=== PATIENT | female | born 1930 | race Caucasian/White ===

== ENCOUNTER 2017-02-26 13:05 | Emergency (ER) | payer OTHER ==
[~2017-02-26] VITALS: Ht 152.4 cm; Wt 66.9 kg
[~2017-02-26 13:05] MED LIST: EZET10TA41 PO; LSX20 PO; METO25TA3 PO; POTA10CA28 PO; VANCOMYCIN PO
[2017-02-26 13:09] VITALS: TEMP 36.7; Ht 152.4 cm; Wt 66.9 kg
[2017-02-26] MEDS ORDERED: LIDOCAINE/EPINEPHRINE 1% 20 ML VIAL INFIL STA (13:19)
--- NOTE | 2017-02-26 13:43 | DIAGNOSTIC IMAGING REPORT ---
CERVICAL SPINE W/O CT DOSE: 381.59 mGycm HISTORY: Trauma Fall, head trauma TECHNIQUE: Multiaxial CT images of the cervical spine were performed and reformatted in the sagittal and coronal plane without the use of contrast. A dose lowering technique was utilized adhering to the principles of ALARA. COMPARISON: None. FINDINGS: No fractures. No subluxation. Prevertebral soft tissues and the C1-C2 interval are intact. No pneumothorax. Degenerative disc changes throughout. Degenerative change of vertebral endplates and posterior elements. IMPRESSION: Degenerative change. No acute process. The above report was generated using voice recognition software. It may contain grammatical, syntax or spelling errors. Electronically signed by: Rachid Garner M.D. 02/26/2017 1:42 PM Dictated Date/Time: 02/26/2017 1:40 PM
--- NOTE | 2017-02-26 13:50 | DIAGNOSTIC IMAGING REPORT ---
HEAD CT NONCONTRAST CT DOSE: 638.56 mGycm HISTORY: Fall, head trauma TECHNIQUE: Multiaxial CT images of the head were performed without the use of intravenous contrast. Automated exposure control was utilized for this study. A dose lowering technique was utilized adhering to the principles of ALARA. Comparison: None. Findings: Trace fluid within the left sphenoid sinus. The remaining paranasal sinuses and mastoid air cells are clear. The calvarium and skull base are intact. There is no mass, hematoma, midline shift, acute infarct. White matter hypodensity is nonspecific but suggestive of microvascular ischemic change. The ventricles and sulci demonstrate mild age-related involutional changes. Right supraorbital soft tissue laceration. Impression: No acute intracranial abnormality. Right supraorbital soft tissue laceration. Electronically signed by: Loco Spivey M.D. 02/26/2017 1:49 PM Dictated Date/Time: 02/26/2017 1:40 PM
--- NOTE | 2017-02-26 14:33 | EMERGENCY ROOM VISIT NOTE ---
ED Visit Note First contact with patient: 13:13 Chief Complaint: "Fall" History of Present Illness: This patient is a 87-year-old female who presents to the Emergency Department via private vehicle for evaluation of their right forehead laceration. Patient sustained the laceration while attempting to refill a bird feeder, when she stepped in a hole and fell to her left striking the right side of her head off of the ground. They report a moderate amount of bleeding initially. They report no loss of consciousness. They deny any headache , visual disturbance, nausea, vomiting, or neck pain. She was seen at a local urgent care who referred her here for further evaluation and management of the facial laceration. Patient rates her current discomfort as a 2/10. Patient's Tetanus status is believed to be currently up-to-date with the last being 4 years ago. Medications: As noted below Allergies: None PMH: No pertinent SHx: Patient lives locally ROS: All pertinent positive and negative review of systems are appropriately documented in the History of Present Illness. Physical Exam: VITAL SIGNS - Vital signs and nursing notes were reviewed. Stable. Hypertensive. GENERAL -87-year-old female appearing her stated age. Communicates well with provider and answers questions appropriately. SKIN - There is a 2.5 cm laceration noted just above the right eyebrow and parallel to that 2 cm above is a 0.75 cm linear laceration in the same plane as the first. The edges gape apart with traction. There is no active bleeding appreciated. No deep structures including vessels, musculature, or bony structures are appreciated. HEAD - Normocephalic. No Mason's Sign or Raccoon's Eyes. No depressed skull fractures palpable. EYES - PERRL with EOMI bilaterally. Without subconjunctival hemorrhage. EARS - No deformities of external structures noted on gross examination bilaterally. No hemotympanum present. No tympanic perforation noted. NOSE - Midline and without cyanosis. No epistaxis or clear watery discharge noted. Septum midline without deviation. MOUTH/OROPHARYNX - Without perioral cyanosis. Tongue midline with equal elevation of palate bilaterally. NECK - FROM assessed. No tenderness to palpation over the cervical spinous processes. No cervical paraspinal muscle tenderness noted. LUNGS - Chest wall symmetric without accessory muscle use, intercostals retractions, or central cyanosis. Normal vesicular breath sounds CTA B/L. No wheezes, rales, or rhonchi appreciated. CARDIAC - RRR with S1/S2. No murmur, rubs, or gallops appreciated. EXTREMITIES - No gross deformities noted of the extremities. +5/5 strength noted in UE/LE bilaterally. NEUROLOGIC - Cranial nerves II through XII grossly intact. Sensory intact to light touch throughout. PSYCH - A&O, and cooperates fully with examiner. Pt is very pleasant and interacts well with examiner. IMAGING: HEAD CT NONCONTRAST CT DOSE: 638.56 mGycm HISTORY: Fall, head trauma TECHNIQUE: Multiaxial CT images of the head were performed without the use of intravenous contrast. Automated exposure control was utilized for this study. A dose lowering technique was utilized adhering to the principles of ALARA. Comparison: None. Findings: Trace fluid within the left sphenoid sinus. The remaining paranasal sinuses and mastoid air cells are clear. The calvarium and skull base are intact. There is no mass, hematoma, midline shift, acute infarct. White matter hypodensity is nonspecific but suggestive of microvascular ischemic change. The ventricles and sulci demonstrate mild age-related involutional changes. Right supraorbital soft tissue laceration. Impression: No acute intracranial abnormality. Right supraorbital soft tissue laceration. Electronically signed by: Loco Spivey M.D. 02/26/2017 1:49 PM Dictated Date/Time: 02/26/2017 1:40 PM CERVICAL SPINE W/O CT DOSE: 381.59 mGycm HISTORY: Trauma Fall, head trauma TECHNIQUE: Multiaxial CT images of the cervical spine were performed and reformatted in the sagittal and coronal plane without the use of contrast. A dose lowering technique was utilized adhering to the principles of ALARA. COMPARISON: None. FINDINGS: No fractures. No subluxation. Prevertebral soft tissues and the C1-C2 interval are intact. No pneumothorax. Degenerative disc changes throughout. Degenerative change of vertebral endplates and posterior elements. IMPRESSION: Degenerative change. No acute process. The above report was generated using voice recognition software. It may contain grammatical, syntax or spelling errors. Electronically signed by: Rachid Garner M.D. 02/26/2017 1:42 PM Dictated Date/Time: 02/26/2017 1:40 PM ED Course: Patient was seen and evaluated by myself. Patient had no focal neurological deficits. Patient's exam is otherwise unremarkable. Patient reports no headaches , visual disturbances, nausea, vomiting, or over-lethargy. Risks and benefits of performing primary wound closure versus no repair were discussed with the patient who verbalizes understanding. CT scan was obtained of the head and cervical spine to rule out acute process. These were negative. Results as above. Verbal consent was obtained prior to performing the procedure. 6 cc of 1% buffered lidocaine with epinephrine was used to anesthetize the 2 facial lacerations. The wound was cleansed and prepped in the typical sterile fashion utilizing normal saline and Betadine. The wound was sterilely draped. Once proper anesthetization was established, the wound was further examined and demonstrated a few pieces of debris which were thoroughly irrigated. The wound was copiously irrigated with normal saline and Betadine. The wound was closed using one simple Vicryl 6 -0 suture with the superficial layers being closed with 7, simple 6-0 nylon sutures and the superior small laceration closed with one simple, 6-0 nylon suture with the wound edges being well approximated. Patient tolerated the procedure well. No complications were met. The wound was cleansed and dressed with a Bacitracin dressing. Patient educated on worrisome symptoms for return visit to the Emergency Department. Patient discharged to home in good condition. Medication list reviewed and she was found hypertensive I believe secondary to situation which improved greatly upon her stay here in the emergency department. In the evaluation and treatment of this patient, the following differential diagnoses were considered: Concussion, Contrecoup Injury, Brain Tumor, Depression, Encephalitis, Hypothyroidism, Meningitis, CVA, TIA, Migraine, Cluster Headache, Intracranial Abnormality, Intracranial Hemorrhage, Subdural Hematoma, Subarachnoid Hemorrhage, Hydrocephalus. Current/Historical Medications Scheduled Ezetimibe/Simvastatin (Vytorin 10MG/40MG), 1 TAB PO QPM Furosemide (Lasix *), 20 MG PO QAM Metoprolol Succ (Toprol Xl) (Toprol-Xl), 12.5 MG PO DAILY Potassium Chloride (Micro-K Ext Rel), 10 MEQ PO BID [Vancomycin], 125 MG PO QID Allergies Coded Allergies: No Known Allergies (Verified Allergy, Mild, 06/27/03) Vital Signs Date Time Temp Pulse Resp B/P (MAP) Pulse Ox O2 Delivery O2 Flow Rate FiO2 11/10/17 14:56 78 20 142/78 99 02/26/17 13:09 36.7 63 17 202/82 95 Room Air Departure Information Impression Primary Impression: Fall Additional Impression: Scalp laceration Dispostion Home / Self-Care Condition GOOD Referrals Jose Carlos Fuller D.OAnthony (PCP) Patient Instructions My [facility] Additional Instructions Discharge Instructions: You have received 8 sutures on your face. These sutures are NOT dissolvable and WILL need to be removed by a health care provider in 7 days. You can return to the Emergency Department or contact your Primary Care Provider to have the sutures removed. Proper wound care is essential for adequate wound healing and infection prevention. You can shower and clean the wound with soap and water. Do not scour over the wound, pat dry with a towel. Do not submerse the wound (i.e. bathe or dish wash) until the sutures have been removed. You can use an antibiotic ointment with a dressing over the wound for the next 2-3 days. After this time you may leave the wound dry and open to the air. If crust develops over the wound you can use a Q-tip to apply a 1:1 peroxide:water solution to clean the wound. Look for signs of infection of the wound including: increased pain, swelling, foul discharge, streaking, or increased temperature. If any of these are noticed you should return to the Emergency Department for further assessment and treatment. As with any laceration you may have received nerve damage to the surrounding tissues. This damage may or may not be permanent. You should keep the area covered with sunscreen for the first 6 months to 1 year when at risk for exposure to help minimize scarring. You can also use scar reducing creams or Vitamin E oil to help minimize scarring. For pain control, you can use the following [id number] medicines (if >12 yo): - Regular strength (325mg/tab) Tylenol (acetaminophen) 2 tabs every 4-6 hours as needed. Do not exceed 12 tablets in a 24 hour period. Avoid taking more than 3 grams (3000 mg) of Tylenol per day. This includes any other sources of acetaminophen you may take on a regular basis. Return to the emergency department if your symptoms worsen despite treatment course outlined above. Problem Qualifiers
--- NOTE | 2017-02-26 14:36 | EMERGENCY ROOM VISIT NOTE ---
ED Visit Note First contact with patient: 13:13 I have seen and examined this patient with Wilmer Cao and generally agree with the treatment plan as discussed. Current/Historical Medications Scheduled Ezetimibe/Simvastatin (Vytorin 10MG/40MG), 1 TAB PO QPM Furosemide (Lasix *), 20 MG PO QAM Metoprolol Succ (Toprol Xl) (Toprol-Xl), 12.5 MG PO DAILY Potassium Chloride (Micro-K Ext Rel), 10 MEQ PO BID [Vancomycin], 125 MG PO QID Allergies Coded Allergies: No Known Allergies (Verified Allergy, Mild, 06/27/03) Vital Signs Date Time Temp Pulse Resp B/P (MAP) Pulse Ox O2 Delivery O2 Flow Rate FiO2 02/26/17 13:09 36.7 63 17 202/82 95 Room Air Departure Information Impression Primary Impression: Fall Additional Impression: Scalp laceration Dispostion Home / Self-Care Condition GOOD Referrals Jose Carlos Fuller, D.O. (PCP) Forms HOME CARE DOCUMENTATION FORM, IMPORTANT VISIT INFORMATION Patient Instructions My [facility] Additional Instructions Discharge Instructions: You have received 8 sutures on your face. These sutures are NOT dissolvable and WILL need to be removed by a health care provider in 7 days. You can return to the Emergency Department or contact your Primary Care Provider to have the sutures removed. Proper wound care is essential for adequate wound healing and infection prevention. You can shower and clean the wound with soap and water. Do not scour over the wound, pat dry with a towel. Do not submerse the wound (i.e. bathe or dish wash) until the sutures have been removed. You can use an antibiotic ointment with a dressing over the wound for the next 2-3 days. After this time you may leave the wound dry and open to the air. If crust develops over the wound you can use a Q-tip to apply a 1:1 peroxide:water solution to clean the wound. Look for signs of infection of the wound including: increased pain, swelling, foul discharge, streaking, or increased temperature. If any of these are noticed you should return to the Emergency Department for further assessment and treatment. As with any laceration you may have received nerve damage to the surrounding tissues. This damage may or may not be permanent. You should keep the area covered with sunscreen for the first 6 months to 1 year when at risk for exposure to help minimize scarring. You can also use scar reducing creams or Vitamin E oil to help minimize scarring. For pain control, you can use the following [id number] medicines (if >12 yo): - Regular strength (325mg/tab) Tylenol (acetaminophen) 2 tabs every 4-6 hours as needed. Do not exceed 12 tablets in a 24 hour period. Avoid taking more than 3 grams (3000 mg) of Tylenol per day. This includes any other sources of acetaminophen you may take on a regular basis. Return to the emergency department if your symptoms worsen despite treatment course outlined above. Problem Qualifiers
[2017-02-26 14:56] VITALS: BP 142/78; PULSE 78; O2SAT 99
== END 2017-02-26 15:04 | disposition home or self-care (01) ==
LOC: C.EDB 13:07 → C.EDD 15:04
DX: S01.81XA Laceration without foreign body of other part of head, initial encounter (principal); W18.30XA Fall on same level, unspecified, initial encounter